=== PATIENT | female | born 1980 | race Caucasian/White ===

== ENCOUNTER 2017-09-21 16:23 | Emergency (ER) | payer OTHER ==
[~2017-09-21] VITALS: Ht 172.7 cm; Wt 64.9 kg
[2017-09-21] MEDS ORDERED: ZYRTEC10 M5 PO (16:35)
[2017-09-21] MEDS ORDERED: ADVAIR HFA 230M12 GM INH (16:35)
[2017-09-21 16:56] LABS: ABSOLUTE EOSINOPHILS 0.4 thou/uL (0.0-0.7); ABSOLUTE LYMPHOCYTES 3.3 thou/uL (0.8-5.3); ABSOLUTE MONOCYTES 0.8 thou/uL (0.0-1.2); ABSOLUTE NEUTROPHILS 6.9 thou/uL (1.6-8.1); BASOPHILS 0.4 %; EOSINOPHILS 3.2 %; HEMOGLOBIN 13.3 gm/dL (12.0-15.0); LYMPHOCYTES 28.8 %; MCH 32.5 pg (26.0-34.0); MCHC 34.1 g/dL (28.0-37.0); MCV 95.1 fL (80.0-100.0); MONOCYTES 7.1 %; MPV 8.4 fl. (7.2-11.1); NUCLEATED RBCS 0 /100WBC; PLATELET COUNT* 314 thou/uL (150-400); POLYS 60.5 %; RDW-CV 12.8 % (10.5-14.5); WBC 11.3 thou/uL (4.0-11.0)
[2017-09-21 17:00] LABS: CALCIUM 9.1 mg/dL (8.5-10.1); CREATININE 0.9 mg/dL (0.6-1.3); POTASSIUM 3.1 mmol/L (3.5-5.1)
[2017-09-21 17:02] LABS: URINE BILIRUBIN NEGATIVE (Negative); URINE BLOOD 1+ (Negative); URINE CLARITY CLEAR; URINE COLOR YELLOW; URINE GLUCOSE-RANDOM NEGATIVE (Negative); URINE KETONES 1+ (Negative); URINE LEUKOCYTES-REFLEX NEGATIVE (Negative); URINE NITRITE-REFLEX NEGATIVE (Negative); URINE PROTEIN NEGATIVE (Negative); URINE SPECIFIC GRAVITY 1.015 (1.005-1.030); URINE UROBILINOGEN 0.2 E.U./dl (0.2-1.0)
[2017-09-21 17:05] LABS: TOTAL BILIRUBIN 0.5 mg/dL (<0.1-1.0); TOTAL PROTEIN 7.4 g/dL (6.4-8.2)
[2017-09-21 17:11] LABS: BACTERIA-REFLEX None Seen /HPF (None Seen); CASTS None Seen /LPF (None Seen); CRYSTALS None Seen /LPF (None Seen); SQUAMOUS 4-10 Moderate /LPF (0-3); URINE RBC None Seen /HPF (0-2); URINE WBC-REFLEX None Seen /HPF (0-5)
[2017-09-21] MEDS ORDERED: ANTIVERT25 MG PO (17:56)
[2017-09-21] MEDS ORDERED: VISTARIL 25 MG25 M1 PO (17:56)
[2017-09-21 19:03] VITALS: BP 114/67
--- NOTE | 2017-09-22 11:29 | EKG ---
[place] [address] ELECTROCARDIOGRAM REPORT Name: MILLIE HA Room: [facility]#: [id number] Admission: 09/21/17 Attend Phys: Discharge: 09/21/17 Date of : 80 Report #: [id number] THIS REPORT FOR: //name// [facility] ED Test Date: 2017-09-21 Test Time: 16:54:11 Pat Name: MILLIE HA Department: Room: Gender: F Repair Tech: Daljit MONCADA : 1980 Requested By: Jaqueline Niño Order Number: [id number] MD: Leonard Lucas Measurements Intervals [place] Rate: 69 P: 60 SD: 139 QRS: 73 QRSD: 89 T: 58 QT: 383 QTc: 411 Interpretive Statements Sinus rhythm No previous ECG available for comparison Electronically Signed On 09-22-2017 11:28:52 CDT by Leonard Lucas [email or web address] <ELECTRONICALLY SIGNED> By: Leonard Lucas MD, [facility] 09/22/17 1128 [id number] 1654 Leonard Lucas MD, FACC /EPI
== END 2017-09-21 19:06 | disposition home or self-care (01) ==
LOC: M.ERS 16:23
PROVIDERS: Nurse Practitioner
DX: R42 Dizziness and giddiness (principal); J45.909 Unspecified asthma, uncomplicated; Z88.1 Allergy status to other antibiotic agents